=== PATIENT | female | born 1970 | race African-American/Black ===

== ENCOUNTER → 2017-02-11 | Outpatient (CLI) | payer BC ==
[~2017-02-11] MED LIST: ALLERGY25 MG PO; HYDROCHLOROTHIA25 MG PO; IUD VAG; LIPITOR20 MG PO; LISINOPRIL10 MG PO; MEDROL DOSEPAK4 MG; VICODIN PO; ZANTAC PO
--- NOTE | ~2017-02-11 | MY29 ---
[facility] A Service of [facility] & [facility] RADIOLOGY TEXT RESULTS PATIENT: SHELTON SAMUELS LOCATION: [facility] : 72 UNIT #: [id number] AGE: [address]: Chas Bermudez MD SEX: F ORDER DR: [id number] [facility] [address] [place], [place] [address] [id number] O MR#: [id number] Acc #: [id number] NAME: SHELTON SAMUELS : 1970 SEX: F STUDY DATE/TIME: 02/11/2017 10:16 UNIT: [facility] ROOM: STUDY DESCRIPTION: MY YU SCREENING W/ CAD BILAT Attending Physician: Dasia Bermudez M.D. Referring Physician: Dasia Bremudez M.D. Ordering Physician: Arnaud Bermudez Jr., M.D. Primary Care Physician: Barbra Costello A.P.R.N. MEDICAL IMAGING REPORT This report is preliminary unless electronic signature is present EXAM Bilateral digital screening mammogram with CAD. COMPARISON March 04, 2014, and December 07, 2012. INDICATION Breast cancer screening. 46-year asymptomatic female. No personal or family history breast cancer. FINDINGS There are scattered fibroglandular densities. Overall, the breast density has increased symmetrically bilaterally. There are scattered fibroglandular densities. There are no suspicious findings in the right breast. On one of the MLO views, there is a skin fold artifact noted posteriorly and that same view is limited by imaging of the nipple not in profile. There are no suspicious findings in the right breast. In the middle third of the left breast just lateral to the posterior nipple line, there is a developing asymmetry which may simply reflect the overall increased breast density and summation artifact. This measures up to 1 cm only seen on CC view. IMPRESSION 1. No mammographic evidence of malignancy in the right breast. 2. Overall breast density is increased bilaterally, likely due to interval weight loss. There is an apparent developing asymmetry in the left breast only seen on CC view which may reflect summation artifact. Further evaluation with spot compression CC view, as well as full field rolled medial and lateral CC views is recommended, possibly followed by left breast ultrasound. Patients over the age of 40 are entered into a reminder system with target due date for the next mammogram. A result letter will also be sent to the [facility] A Service of [facility] & [facility] RADIOLOGY TEXT RESULTS PATIENT: SHELTON SAMUELS LOCATION: [facility] : 72 UNIT #: [id number] AGE: [address]: Chas Bermudez MD SEX: F ORDER DR: patient. BIRADS: 0 Incomplete; need additional imaging evaluation and/or prior mammograms for comparison. Dictated by... Tae Mccormick M.D. THIS IS AN ELECTRONICALLY VERIFIED REPORT Tae Mccormick M.D. at 02/19/2017 1:31 AM Carolynn TD: 02/11/2017 20:31 JOB #: [id number] MEDICAL IMAGING REPORT Page 1 of 1 COPY
== END | disposition home or self-care (01) ==
LOC: CWCC 09:15
DX: Z12.31 Encounter for screening mammogram for malignant neoplasm of breast (principal); N64.89 Other specified disorders of breast
CPT/HCPCS: G0202

== ENCOUNTER → 2017-02-26 | Outpatient (CLI) | payer BC ==
--- NOTE | ~2017-02-26 | US24 ---
[facility] A Service of [facility] RADIOLOGY TEXT RESULTS PATIENT: SHELTON SAMUELS LOCATION: [facility] : 71 UNIT #: [id number] AGE: [address]: Chas Bermudez MD SEX: F ORDER DR: [id number] [facility] [address] [place], [place] [address] [id number] O MR#: [id number] Acc #: [id number] NAME: SHELTON SAMUELS : 1970 SEX: F STUDY DATE/TIME: 02/26/2017 8:50 UNIT: [facility] ROOM: STUDY DESCRIPTION: Breast Unilateral Attending Physician: Dasia Bermudez M.D. Referring Physician: Dasia Bermudez M.D. Ordering Physician: Dasia Bermudez M.D. Primary Care Physician: Dasia Bermudez M.D. MEDICAL IMAGING REPORT This report is preliminary unless electronic signature is present EXAM Diagnostic left breast ultrasound, 02/26/2017. HISTORY Nodular density in the left breast on screening mammogram, for which additional diagnostic imaging is recommended. COMPARISON Bilateral screening mammogram 02/11/2017. Left breast diagnostic mammogram 02/26/2017. FINDINGS Targeted sonographic images were performed of the lateral hemisphere of the left breast. At the 3 o'clock axis, a 1-cm cyst is seen. It is thought to correspond to the mammographic findings. No suspicious solid nodules are identified. No architectural distortion. IMPRESSION Left breast benign findings. Please refer to the diagnostic mammogram report from the same day for full description of mammographic and sonographic findings and recommendations. BIRADS: 2 - Benign finding. Dictated by... Shefali Graves M.D. THIS IS AN ELECTRONICALLY VERIFIED REPORT Shefali Graves M.D. at 02/26/2017 5:03 PM PIERRE/carolyn TD: 02/26/2017 16:25 [facility] A Service of [facility] RADIOLOGY TEXT RESULTS PATIENT: SHELTON SAMUELS LOCATION: [facility] : 72 UNIT #: [id number] AGE: [address]: Chas Bermudez MD SEX: F ORDER DR: ODETTE #: [id number] MEDICAL IMAGING REPORT Page 1 of 1 COPY
--- NOTE | ~2017-02-26 | MY24 ---
[facility] A Service of [facility] & [facility] RADIOLOGY TEXT RESULTS PATIENT: SHELTON SAMUELS LOCATION: [facility] : 72 UNIT #: [id number] AGE: [address]: Chas Bermudez MD SEX: F ORDER DR: [id number] [place] [address] [facility] [place], [place] [address] [id number] O MR#: [id number] Acc #: [id number] NAME: SHELTON SAMUELS. : 1970 SEX: F STUDY DATE/TIME: 02/26/2017 7:48 UNIT: [facility] ROOM: STUDY DESCRIPTION: YOSELIN YU ALVARO W/ CAD UNI LT Attending Physician: Dasia Bermudez M.D. Referring Physician: Dasia Bermudez M.D. Ordering Physician: Dasia Bermudez M.D. Primary Care Physician: Dasia Bermudez M.D. MEDICAL IMAGING REPORT This report is preliminary unless electronic signature is present EXAMINATION Left breast digital diagnostic mammogram with CAD. DATE 02/26/2017 HISTORY Focal asymmetry in the left breast on previous screening mammogram for which additional diagnostic imaging was recommended. COMPARISON Bilateral screening mammogram 01/26/2017, 03/04/2014. FINDINGS True CC view was obtained of the left breast. CC views of left breast rolled medial and rolled lateral, spot compression view of the left breast in the CC, true ML planes was obtained. Scattered fibroglandular densities are present. A subcentimeter oval nodule within the upper/outer left breast persists upon rolled views and becomes more conspicuous on the CC view. It is less conspicuous on the true lateral views, but is thought to be located along the posterior nipple line. Targeted left breast diagnostic ultrasound was performed on this same date to include the entirety of the lateral hemisphere. In the 3 o'clock axis left breast, a 1.0 cm benign-appearing cyst is seen. No suspicious solid nodules are identified. IMPRESSION 1. Left breast BIRADS 2. Benign findings. The nodular density seen on the mammogram is thought to correspond to a 1 cm cyst on ultrasound. It is in keeping with a benign finding. [facility] A Service of [facility] & [facility] RADIOLOGY TEXT RESULTS PATIENT: SHELTON SAMUELS LOCATION: [facility] : 72 UNIT #: [id number] AGE: [address]: Chas Bermudez MD SEX: F ORDER DR: 2. Routine screening mammogram recommended in one year. Continued annual physician physical examination and monthly self-breast examination are recommended. 3. Findings were discussed with the patient today in the radiology department. BIRADS II. Patients over the age of 40 are entered into a reminder system with target due date for the next mammogram. A result letter will also be sent to the patient. BIRADS: 2 Benign findings. Dictated by... Shefali Graves M.D. THIS IS AN ELECTRONICALLY VERIFIED REPORT Shefali Graves M.D. at 02/26/2017 5:03 PM PIERRE/ricardo TD: 02/26/2017 16:35 JOB #: [id number] MEDICAL IMAGING REPORT Page 1 of 1 COPY
== END | disposition home or self-care (01) ==
LOC: CMAM 07:22
DX: R92.8 Other abnormal and inconclusive findings on diagnostic imaging of breast (principal); N63 Unspecified lump in breast
CPT/HCPCS: 76641; G0206